=== PATIENT | female | born 1960 | race Caucasian/White ===

== ENCOUNTER → 2021-04-25 | Outpatient (CLI) | payer OTHER ==
[~2021-04-25] MED LIST: BACTRIM DS TAB1 EACH PO; CELEBREX200 MG PO; CYMBALTA30 MG PO; ESTRADERM 0.05 M1 EA TD; K-TAB ER10 MEQ PO; KLONOPIN TAB 00.5 MG PO; LASIX20 MG PO; NEURONTIN 400400 MG PO; NORCO 10-325 T1 EACH PO; PERCOCET 10-321 EACH PO; PLAQUENIL 200200 MG PO; SYNTHROID50 MCG PO; VOLTREN XR 100100 MG PO; ZANTAC300 MG PO
== END ==
LOC: HEART CORB 04-11 12:15
DX: I10 Essential (primary) hypertension (principal); R60.0 Localized edema; R07.2 Precordial pain; R06.02 Shortness of breath; I27.20 Pulmonary hypertension, unspecified; I07.1 Rheumatic tricuspid insufficiency